=== PATIENT | male | born 1970 | race Caucasian/White ===

== ENCOUNTER → 2019-10-28 | Outpatient (CLI) | payer OTHER ==
[2015-02-15 14:41] VITALS: BP 223/116
--- NOTE | 2019-11-03 15:07 | SLEEP ---
DATE OF STUDY: 10/28/2019 HOME SLEEP STUDY ATTENDING PHYSICIAN: Andrea Melendez MD The patient is 49 years old who weighs 330 pounds with a BMI of 44.8. The patient's [place] score was 4. The patient underwent home sleep study performed by [facility]. Total recording time was 418 minutes. During the night study, the patient had 38 mixed apneas, 2 obstructive apneas, no central apneas and 11 hypopneas. The patient's AHI was only 7.3 per hour. Nocturnal oximetry study revealed an average oxygen saturation of 92%; the lowest of 82%. 0.5 minutes were spent in oxygen saturation less than 90%. Mean heart rate 48 beats per minute. IMPRESSION: 1. Mild obstructive sleep apnea at an AHI of 7.3 per hour. 2. No clinically significant periodic limb movements. RECOMMENDATIONS: 1. The patient does not meet the criteria for CPAP initiation. 2. Weight loss to the ideal body weight is initially recommended for the patient's mild obstructive sleep apnea. 3. If the patient remains clinically symptomatic or has other comorbid conditions, then the patient's sleep apnea can be treated with CPAP versus oral appliance. J CARLOS MARTÍNEZ MD DR: KAITLIN/eva JOB#: [id number] / [id number] ANDREA Maddox MD
== END | disposition home or self-care (01) ==
LOC: RT 10:46
PROVIDERS: ATTEND Family Medicine
DX: G47.33 Obstructive sleep apnea (adult) (pediatric) (principal)
CPT/HCPCS: G0399